=== PATIENT | female | born 1935 | race Caucasian/White ===

== ENCOUNTER 2018-10-10 00:11 | Inpatient (IN) ==
[2018-10-10] MEDS ORDERED: Sod Chloride 0.9% Inj 1,000 ML IV.SIG ONE (00:34)
--- NOTE | 2018-10-10 00:40 | ED ---
HPI General Chief Complaint: Dizziness Stated Complaint: Dizziness Time Seen by Provider: 10/10/18 00:30 Source: patient Limitations: no limitations History of Present Illness HPI Narrative: Dizziness over the last 2 days MD complaint: Reports dizziness Onset (ago): day(s) Timing: sudden onset Description: Reports "room spinning" History of similar episodes: Yes History of trauma: No Severity: moderate Relieving factors: nothing Exacerbating factors: position Associated symptoms: Reports nausea and vomiting Related Data Home Medications Medication Instructions Recorded Confirmed losartan 25 mg PO DAILY 10/10/18 10/10/18 metformin 500 mg PO BID 10/10/18 10/10/18 Allergies Allergy/AdvReac Type Severity Reaction Status Date / Time acetaminophen Allergy Mild Generalized Verified 10/10/18 00:15 Rash codeine Allergy Mild Difficulty Verified 10/10/18 00:15 Breathing hydrocodone Allergy Mild Generalized Verified 10/10/18 00:15 Rash oxycodone Allergy Mild Generalized Verified 10/10/18 00:15 Rash penicillin G Allergy Mild Generalized Verified 10/10/18 00:15 Rash Sulfa (Sulfonamide Allergy Mild Generalized Verified 10/10/18 00:15 Antibiotics) Rash ALL MYCINS Allergy Mild Generalized Uncoded 10/10/18 00:15 Rash Review of Systems ROS: all other systems reviewed are negative Cardiovascular Denies chest pain Neurologic Denies headache(s) and Denies focal weakness PMFSH Medical History Medical History Arthritis (Acute) H/O: hysterectomy (Acute) Hip fracture (Acute) Hypertension (Acute) Osteoporosis (Acute) Surgical History Surgical History Hx of tonsillectomy (Acute) Social History Social History Substance History: No History of Abuse Smoking Status: Never smoker How Often Do You Have a Drink Containing Alcohol: Monthly or less Recent Travel in [place] within the Last 8 Weeks: No Recent Out of Country Travel within the Last 8 Weeks: No Immunization History Tetanus Immunization: Unsure Exam Narrative Exam Narrative: NONTOXIC PERRL, EOMI TM right cerumen with no vesicles, left TM clear NO JVD NON LABORED RESPIRATIONS REGULAR RHYTHM SOFT NON TENDER, no pulsatile mass PELVIS STABLE FROM EXTREMITIES, no pronator drift, equal sales support rep strength NO LOWER EXTREMITY EDEMA, nontender FACIAL SYMMETRY CLEAR NONLABORED SENTENCES Course Reevaluation(s) Reevaluation #1: Patient states she had chest tightness yesterday and she took 2 aspirin, no chest pain current. Updated daughter at bedside 0205 D/W RADHIKA BERMUDEZ TO ADMIT / ASSUME CARE. HD stable with no signs of acute airway compromise Time: 01:56 Initial Documented Vital Signs Temperature 97.3 F L 10/10/18 00:16 Pulse Rate 75 10/10/18 00:16 Respiratory Rate 20 10/10/18 00:16 Blood Pressure 186/85 H 10/10/18 00:16 Pulse Oximetry 97 10/10/18 00:16 Last Documented Vital Signs Temperature 97.3 F L 10/10/18 00:16 Pulse Rate 68 10/10/18 01:10 Respiratory Rate 18 10/10/18 01:10 Blood Pressure 172/85 H 10/10/18 01:10 Pulse Oximetry 97 10/10/18 01:10 Critical Care Time Critical Care Time: Yes Total Critical Care Time: 35 Attestation: Aggregate critical care time was 35 minutes. Time to perform other separately billable procedures was not included in the critical care time. My time did not include minutes spent treating any other patients simultaneously or on activities that did not directly contribute to the patient's treatment. The services I provided to this patient were to treat and/or prevent clinically significant deterioration that could result in: Pain disability I provided critical care services requiring my management, as noted below: Chart data review, documentation time, medication orders and management, vital sign assessments/reviewing monitor data, ordering and reviewing lab tests, ordering and interpreting/reviewing x-rays and diagnostic studies, care of the patient and discussion of the patient with the admitting physicians. Medical Decision Making MDM Narrative Medical Screen Exam Complete: Yes Emergency Medical Condition: Yes Lab Data Result diagrams: 10/10/18 00:49 10/10/18 00:49 Lab Results 10/10/18 10/10/18 Range/Units 00:49 00:49 WBC 9.7 (4.0-11.0) th/mm3 RBC 4.51 (4.00-5.30) mil/mm3 Hgb 13.4 (11.6-15.3) gm/dL Hct 38.9 (35.0-46.0) % MCV 86.3 (80.0-100.0) fL MCH 29.8 (27.0-34.0) pg MCHC 34.5 (32.0-36.0) % RDW 14.2 (11.6-17.2) % Plt Count 210 (150-450) th/mm3 MPV 7.9 (7.0-11.0) fL Neut % (Auto) 59.5 (16.0-70.0) % Lymph % (Auto) 28.3 (9.0-44.0) % [place] % (Auto) 8.0 (0.0-8.0) % Eos % (Auto) 3.9 (0.0-4.0) % Baso % (Auto) 0.3 (0.0-2.0) % Neut # (Auto) 5.7 (1.8-7.7) th/mm3 Lymph # (Auto) 2.7 (1.0-4.8) th/mm3 [place] # (Auto) 0.8 (0.0-0.9) th/mm3 Eos # (Auto) 0.4 (0.0-0.4) th/mm3 Baso # (Auto) 0.0 (0.0-0.2) th/mm3 WBC Differential . Differential Comment Auto diff final Sodium 142 (136-145) meq/L Potassium 3.9 (3.5-5.1) meq/L Chloride 108 H (98-107) meq/L Carbon Dioxide 28.5 (21.0-32.0) meq/L Anion Gap 6 (5-15) meq/L BUN 15 (7-18) mg/dL Creatinine 0.86 (0.50-1.00) mg/dL Estimated GFR 63 L (>89) mL/min Random Glucose 125 H (74-106) mg/dL Calcium 8.6 (8.5-10.1) mg/dL Troponin I 0.19 H (0.02-0.05) ng/mL Imaging Data Radiologist's impression: Chest X-Ray 10/10/18 00:34 CONCLUSION: No acute cardiopulmonary process. Head CT 10/10/18 00:34 CONCLUSION: 1. No acute abnormality. 2. Mild atrophy. . ECG Data Attestation: I personally reviewed and interpreted this ECG as follows: Discharge Plan Discharge Disposition Patient Disposition: ED Admit(ED Internal Use Only) Discharge Condition Condition: Serious Discharge Order Discharge Orders: ED Use Only Admit Order (Routine); Ordered 10/10/18 Ordered By: Tai Barillas Discharge Details Diagnosis: Acute non-ST elevation myocardial infarction (NSTEMI) Physicians Team ED Provider: Tai Barillas Primary Care Provider: Daxa Faulkner Attending Provider: Gini Gaitan Discharge Interventions Interventions: Vital Signs Last Done: 10/10/18 01:10 Status ED Status: Admitted Patient
--- NOTE | 2018-10-10 00:59 | XR ---
EXAM DATE: 10/10/2018 12:48 AM EST AGE/SEX: 82 years / Female INDICATIONS: Dizziness. CLINICAL DATA: This is the patient's initial encounter. Patient reports that signs and symptoms have been present for 1 day and indicates a pain score of 0/10. MEDICAL/SURGICAL HISTORY: None. None. COMPARISON: No prior exams available for comparison. FINDINGS: A single AP view of the chest demonstrates the lungs to be symmetrically aerated without evidence of mass, infiltrate or effusion. The cardiomediastinal contours are unremarkable. Osseous structures a re intact. CONCLUSION: No acute cardiopulmonary process. Electronically signed by: Dale Hollis MD Board Certified Radiologist 10/10/2018 12:57 AM EST
[2018-10-10 01:09] LABS: Baso % (Auto) 0.3 % (0.0-2.0); Eos # (Auto) 0.4 th/mm3 (0.0-0.4); Eos % (Auto) 3.9 % (0.0-4.0); Hematocrit 38.9 % (35.0-46.0); Hemoglobin 13.4 gm/dL (11.6-15.3); Lymph # (Auto) 2.7 th/mm3 (1.0-4.8); Lymph % (Auto) 28.3 % (9.0-44.0); Mean Corpuscular HGB Conc 34.5 % (32.0-36.0); Mean Corpuscular Hemoglobin 29.8 pg (27.0-34.0); Mean Corpuscular Volume 86.3 fL (80.0-100.0); Mean Platelet Volume 7.9 fL (7.0-11.0); Mono # (Auto) 0.8 th/mm3 (0.0-0.9); Neut # (Auto) 5.7 th/mm3 (1.8-7.7); Neut % (Auto) 59.5 % (16.0-70.0); Platelet Count 210 th/mm3 (150-450); Red Blood Count 4.51 mil/mm3 (4.00-5.30); Red Cell Distribution Width 14.2 % (11.6-17.2); White Blood Count 9.7 th/mm3 (4.0-11.0)
[2018-10-10 01:37] LABS: Calcium 8.6 mg/dL (8.5-10.1); Carbon Dioxide 28.5 meq/L (21.0-32.0); Potassium 3.9 meq/L (3.5-5.1)
[2018-10-10 01:41] LABS: Troponin I 0.19 ng/mL (0.02-0.05)
--- NOTE | 2018-10-10 01:44 | CT ---
EXAM DATE: 10/10/2018 1:39 AM EST AGE/SEX: 82 years / Female INDICATIONS: Dizziness. CLINICAL DATA: This is the patient's initial encounter. Patient reports that signs and symptoms have been present for 1 day and indicates a pain score of 0/10. MEDICAL/SURGICAL HISTORY: Hypertension. Hysterectomy. Tonsillectomy. RADIATION DOSE: 30.13 CTDI (mGy) COMPARISON: No prior exams available for comparison. TECHNIQUE: CT of the head without contrast. Using automated exposure control and adjustment of the mA and/or kV according to patient size, radiation dose was kept as low as reasonably achievable to ob tain optimal diagnostic quality images. DICOM format image data is available electronically for revi ew and comparison. FINDINGS: Cerebrum: The ventricles are normal for age. There is mild widening of the sulci. No evidence of mid line shift, mass lesion, hemorrhage or acute infarction. No extraaxial fluid collections are seen. Posterior Fossa: The cerebellum and brainstem are intact. The 4th ventricle is midline. The cerebe llopontine angle is unremarkable. Extracranial: The visualized portion of the orbits is intact. Skull: The calvaria is intact. No evidence of skull fracture. CONCLUSION: 1. No acute abnormality. 2. Mild atrophy. . Electronically signed by: Dale Hollis MD Board Certified Radiologist 10/10/2018 1:43 AM EST
[2018-10-10] MEDS ORDERED: Heparin 10,000 UNITS/10 ML Vial (for IV use) IV.PUSH STA (01:58)
[2018-10-10] MEDS ORDERED: Heparin Drip 25,000 UNIT/250 ML BAG IV.CONT PRN (02:06)
[2018-10-10] MEDS ORDERED: Bisacodyl 10 MG Supp RECTAL PRN (02:09)
[2018-10-10] MEDS ORDERED: Dextrose 50% in Water 50 ML Vial IV.PUSH PRN (02:22)
[2018-10-10 02:31] LABS: Activated Partial Thrombo Time 28.7 sec (23.4-31.7); Prothrombin Time 10.3 sec (9.8-11.6)
[2018-10-10] MEDS ORDERED: LORazepam 0.5 MG Tablet PO PRN (02:31)
[2018-10-10 02:32] LABS: Amorphous Sediment,Urine Rare /hpf; Bacteria,Urine Few /hpf; Bilirubin,Urine Negative (Negative); Clarity,Urine Hazy (Clear); Color,Urine Yellow (Yellw/Straw); Glucose,Urine (UA) Negative (Negative); Leukocyte Esterase,Urine Large (Negative); Mucus,Urine Few /lpf (Occasional); Nitrite,Urine Negative (Negative); Squamous Epithelial Cell,Urine 2 /hpf (0-5)
[2018-10-10] MEDS: Sod Chloride 0.9% Inj 1,000 ML IV.CONT SCH ×2 (02:32→14:09)
--- NOTE | 2018-10-10 02:39 | P.HPIM ---
History of Present Illness Primary Care Physician: Daxa Faulkner MD History of Present Illness: This is an 82-year-old female with no significant PMH who presented to the ER with complaints of dizziness x1 day. States she was seen at ER earlier, had her ears cleaned and was d/c'd home, however symptoms progressively worse. Denies h/o similar symptoms in the past. No nausea, vomiting, headache or blurred vision. No recent URI or nasal congestion. Does note transient episode of "chest tightness" yesterday lasting few seconds, took 2 baby ASA and symptoms resolved, did not seek medical attention at that time. On arrival, BP 186/85, HR 75, O2 sat 97% on RA, Afebrile. CBC unremarkable. Chemistry essentially unremarkable except for GFR 63. Troponin 0.19. EKG with no acute ischemia. CXR with no acute findings. CT Head negative. S/p Meclizine in ER w / no improvement. Currently on Heparin gtt. Chest pain free. - Diagnosis (1) NSTEMI (non-ST elevated myocardial infarction) (2) Vertigo (3) DM (diabetes mellitus) Inpatient Certification: I certify that the inpatient services were ordered in accordance with Medicare regulations governing the order. This includes certification that hospital inpatient services are reasonable and necessary and in the case of services not specified as inpatient-only under 42 CFR 419.22(n), that they are appropriately provided as inpatient services in accordance to with the 2-midnight benchmark under 43 CFR 412.3(e) Estimated Total Length of Stay (Days): 2 Plans for Post Hospital Care: Not yet determined Review of Systems PAST FAMILY HISTORY: Reviewed. No h/o DM or CAD All other systems reviewed negative except as stated in HPI [facility] - History History Provided By: Patient - Medical History Medical History: Medical History (Last Reviewed 10/10/18 @ 00:39 by Tai Barillas DO) Arthritis H/O: hysterectomy Hip fracture Hypertension Osteoporosis - Surgical History Surgical History: Surgical History (Last Updated 10/10/18 @ 00:27 by Chetan Costello Jr, RN) Hx of tonsillectomy - Tobacco History Smoking Status: Never smoker - Alcohol History How Often Do You Have a Drink Containing Alcohol: Monthly or less - Substance Use History Substance History: No History of Abuse - Travel History Recent Travel in the [facility] Within the Last 8 Weeks: No Recent Travel Out of the Country Within the Last 8 Weeks: No - Immunization History Tetanus Immunization: Unsure Medications and Allergies Active Medications: Active Medications Al Hydroxide/Mg Hydroxide (Milk Of Magnesia Liq) 30 ml PO Q12H PRN PRN Reason: Mild Constipation Bisacodyl (Dulcolax Supp) 10 mg RECTAL DAILY PRN PRN Reason: SEVERE CONSITIPATION Dextrose (D50w Vial) 50 ml IV.PUSH UNSCH PRN PRN Reason: PER HYPOGLYCEMIA PROTOCOL Glucagon (Glucagon Inj) 1 mg OTHER PRN PRN PRN Reason: for Hypoglycemia Protocol Heparin Sodium/Dextrose (Heparin/D5w 25,000 U/250 Ml) 25,000 unit in 250 mls @ 0 mls/hr IV.CONT TITRATE PRN; Protocol PRN Reason: Per Protocol Sodium Chloride (Ns Inj) 1,000 mls @ 100 mls/hr IV.CONT .Q10H JULIA Insulin Aspart (Novolog Insulin Correctional Sugar Inj) 0 unit SQ ACHS JULIA; Protocol Lactulose (Lactulose Liq) 30 ml PO DAILY PRN PRN Reason: SEVERE CONSITIPATION Meclizine HCl (Antivert) 25 mg PO Q8H PRN PRN Reason: VERTIGO Nitroglycerin (Nitro-Bid 2% Oint) 0.5 inch TOPICAL Q6HR PRN PRN Reason: CHEST PAIN Ondansetron HCl (Zofran Inj) 4 mg IV.PUSH Q6H PRN PRN Reason: NAUSEA OR VOMITING Senna/Docusate Sodium (Jadyn-Colace) 1 tab PO BID JULIA Sennosides (Senokot) 17.2 mg PO Q12H PRN PRN Reason: Moderate Constipation Sodium Chloride (Ns Flush) 2 ml IV.FLUSH PRN PRN PRN Reason: FLUSH AFTER USING IV ACCESS Sodium Chloride (Ns Flush) 2 ml IV.FLUSH BID JULIA Sodium Chloride (Ns Flush) 2 ml IV.FLUSH PRN PRN PRN Reason: FLUSH AFTER USING IV ACCESS Allergies Allergy/AdvReac Type Severity Reaction Status Date / Time acetaminophen Allergy Mild Generalized Verified 10/10/18 00:15 Rash codeine Allergy Mild Difficulty Verified 10/10/18 00:15 Breathing hydrocodone Allergy Mild Generalized Verified 10/10/18 00:15 Rash oxycodone Allergy Mild Generalized Verified 10/10/18 00:15 Rash penicillin G Allergy Mild Generalized Verified 10/10/18 00:15 Rash Sulfa (Sulfonamide Allergy Mild Generalized Verified 10/10/18 00:15 Antibiotics) Rash ALL MYCINS Allergy Mild Generalized Uncoded 10/10/18 00:15 Rash Home Medications Medication Instructions Recorded Confirmed Type losartan 25 mg PO DAILY 10/10/18 10/10/18 History metformin 500 mg PO BID 10/10/18 10/10/18 History Exam Vital signs: Vital Signs 10/10/18 00:16 10/10/18 00:31 10/10/18 01:10 Temperature 97.3 F L Pulse Rate 75 78 68 Respiratory Rate 20 18 18 Blood Pressure 186/85 H 181/125 H 172/85 H Pulse Oximetry 97 97 97 Intake & Output 10/09/18 10/09/18 10/10/18 06:59 18:59 06:59 Intake Total 1000 / 1000 Balance 1000 / 1000 Weight 54.431 kg Intake: IV 1000 / 1000 NS Inj 1,000 ML @ Wide Open IV. 1000 / 1000 SIG BOLUS ONE Rx#:[id number] Narrative: PE: GENERAL: Pleasant elderly white female in no acute distress. SKIN: Focused skin assessment warm and dry. HEENT: PERRLA, EOMI. No scleral icterus or conjunctival pallor. No lid lag or facial droop. CARDIOVASCULAR: Regular rate and rhythm. No obvious murmurs to auscultation. No chest tenderness to palpation. RESPIRATORY: No obvious rhonchi or wheezing. Clear to auscultation. Breath sounds equal bilaterally. GASTROINTESTINAL: Abdomen soft, non-tender, nondistended. BS normal. MUSCULOSKELETAL: Extremities without clubbing, cyanosis, or edema. No obvious deformities. NEUROLOGICAL: Awake, alert and oriented x4. No focal neurologic deficits. Moving both upper and lower extremities spontaneously. PSYCHIATRIC: Appropriate mood and affect. Insight and judgment normal. Results - Labs CBC & Chem 7: 10/10/18 00:49 10/10/18 00:49 Labs: Short CBC 10/10/18 Range/Units 00:49 WBC 9.7 (4.0-11.0) th/mm3 Hgb 13.4 (11.6-15.3) gm/dL Hct 38.9 (35.0-46.0) % Plt Count 210 (150-450) th/mm3 BMP 10/10/18 00:49 Sodium 142 Potassium 3.9 Chloride 108 H Carbon Dioxide 28.5 BUN 15 Creatinine 0.86 Calcium 8.6 Cardiac Enzymes 10/10/18 Range/Units 00:49 Troponin I 0.19 H (0.02-0.05) ng/mL - Imaging Impressions Chest X-Ray 10/10/18 00:34 CONCLUSION: No acute cardiopulmonary process. Head CT 10/10/18 00:34 CONCLUSION: 1. No acute abnormality. 2. Mild atrophy. . Caprini VTE Risk Assessment Caprini VTE Risk Assessment: No/Low Risk (score <= 1) Caprini Risk Assessment Model: Point Value = 1 Point Value = 2 Point Value = 3 Point Value = 5 Age 41-60 Minor surgery BMI > 25 kg/m2 Swollen legs Varicose veins or History of unexplained or recurrent spontaneous Oral contraceptives or hormone replacement Sepsis (< 1 month) Serious lung disease, including pneumonia (< 1 month) Abnormal pulmonary function Acute myocardial infarction Congestive heart failure (< 1 month) History of inflammatory bowel disease Medical patient at bed rest Age 61-74 Arthroscopic surgery Major open surgery (> 45 min) Laparoscopic surgery (> 45 min) Malignancy Confined to bed (> 72 hours) Immobilizing plaster cast Central venous access Age >= 75 History of VTE Family history of VTE Factor V Leiden Prothrombin [id number] Lupus anticoagulant Anticardiolipin antibodies Elevated serum homocysteine Heparin-induced thrombocytopenia Other congenital or acquired thrombophilia Stroke (< 1 month) Elective arthroplasty Hip, pelvis, or leg fracture Acute spinal cord injury (< 1 month) Prophylaxis Regimen: Total Risk Factor Score Risk Level Prophylaxis Regimen 0-1 Low Early ambulation 2 Moderate Order ONE of the following: *Sequential Compression Device (SCD) *Heparin 5000 units SQ BID 3-4 Higher Order ONE of the following medications: *Heparin 5000 units SQ TID *Enoxaparin/Lovenox 40 mg SQ daily (WT < 150 kg, CrCl > 30 mL/min) *Enoxaparin/Lovenox 30 mg SQ daily (WT < 150 kg, CrCl > 10-29 mL/min) *Enoxaparin/Lovenox 30 mg SQ BID (WT < 150 kg, CrCl > 30 mL/min) AND/OR *Sequential Compression Device (SCD) 5 or more Highest Order ONE of the following medications: *Heparin 5000 units SQ TID (Preferred with Epidurals) *Enoxaparin/Lovenox 40 mg SQ daily (WT < 150 kg, CrCl > 30 mL/min) *Enoxaparin/Lovenox 30 mg SQ daily (WT < 150 kg, CrCl > 10-29 mL/min) *Enoxaparin/Lovenox 30 mg SQ BID (WT < 150 kg, CrCl > 30 mL/min) AND *Sequential Compression Device (SCD) Assessment and Plan - Assessment (1) NSTEMI (non-ST elevated myocardial infarction) Code(s): I21.4 - Non-ST elevation (NSTEMI) myocardial infarction Status: Acute (2) Vertigo Code(s): R42 - Dizziness and giddiness Status: Acute (3) DM (diabetes mellitus) Code(s): E11.9 - Type 2 diabetes mellitus without complications Status: Acute - Plan A/P: 1. NSTEMI: transient episode of chest tightness yesterday associated w/ dizziness, Trop 0.19, EKG w/ no acute ischemia, currently on Heparin gtt. Admit to [facility], Telemetry, check serial cardiac enzymes for trend, start ASA, Statin, Metoprolol. Consult Cardiology for further eval/intervention. NTG/ Morphine prn. 2. Vertigo: c/o dizziness x1 day, CT Head w/ no acute findings, s/p Meclizine with no improvement, states symptoms worse. Ativan prn, PT for eval/tx. 3. DM: Sliding scale w/ Accu-Cheks. Hold Metformin for now. 4. DVT Prophylaxis: Heparin gtt 5. Social work for d/c planning as needed. 6. Case discussed w/ ER physician at length, labs/records/imaging reviewed by me.
[2018-10-10] MEDS: Insulin NovoLOG Aspart Correctional Sugar Inj SQ SCH ×4 (09:32→21:19)
[2018-10-10] MEDS: Senna/Docusate Sodium 8.6/50 MG Tablet PO SCH ×2 (09:34→21:19)
[2018-10-10] MEDS: Metoprolol Tartrate 25 MG Tablet PO SCH ×2 (09:34→21:19)
[2018-10-10 10:54] LABS: Albumin 2.9 g/dL (3.4-5.0); Anion Gap 5 meq/L (5-15); Aspartate Aminotransferase 13 U/L (15-37); Blood Urea Nitrogen 11 mg/dL (7-18); Calcium 7.9 mg/dL (8.5-10.1); Carbon Dioxide 25.8 meq/L (21.0-32.0); Chloride 114 meq/L (98-107); Glomerular Filtration Rate 70 mL/min (>89); Glucose,Random 93 mg/dL (74-106); Sodium 145 meq/L (136-145)
[2018-10-10 10:59] LABS: Alanine Aminotransferase 17 U/L (10-53); Alkaline Phosphatase 60 U/L (45-117); Total Protein 6.2 g/dL (6.4-8.2); Troponin I 0.17 ng/mL (0.02-0.05)
--- NOTE | 2018-10-10 11:39 | P.PNIM ---
Subjective Interval history: No further chest pain overnight, denies any shortness of breath. Mild headache. No nausea or vomiting. Physical Exam Vital signs: Last Vital Signs Temp 97.7 F 10/10/18 08:00 Pulse 59 L 10/10/18 10:00 Resp 16 10/10/18 08:00 BP 138/73 10/10/18 08:00 Pulse Ox 97 10/10/18 08:00 Intake & Output 10/08/18 10/09/18 10/10/18 10/11/18 06:59 06:59 06:59 06:59 Intake Total 1000 / 1000 Output Total 300 / 300 Balance 700 / 700 Weight 54.3 kg Narrative: PE: GENERAL: Pleasant elderly white female in no acute distress. CARDIOVASCULAR: Regular rate and rhythm. No obvious murmurs to auscultation. No chest tenderness to palpation. RESPIRATORY: No obvious rhonchi or wheezing. Clear to auscultation. Breath sounds equal bilaterally. GASTROINTESTINAL: Abdomen soft, non-tender, nondistended. BS normal. MUSCULOSKELETAL: Extremities without clubbing, cyanosis, or edema. No obvious deformities. NEUROLOGICAL: Awake, alert and oriented x4. No focal neurologic deficits. Moving both upper and lower extremities spontaneously. Results Labs CBC & Chem 7: 10/10/18 00:49 10/10/18 10:07 Imaging Imaging: Impressions Chest X-Ray 10/10/18 00:34 CONCLUSION: No acute cardiopulmonary process. Head CT 10/10/18 00:34 CONCLUSION: 1. No acute abnormality. 2. Mild atrophy. . Assessment and Plan (1) NSTEMI (non-ST elevated myocardial infarction): Code(s): I21.4 - Non-ST elevation (NSTEMI) myocardial infarction Status: Acute (2) Vertigo: Code(s): R42 - Dizziness and giddiness Status: Acute (3) DM (diabetes mellitus): Code(s): E11.9 - Type 2 diabetes mellitus without complications Status: Acute Plan This is an 82-year-old female with no significant PMH who presented to the ER with complaints of dizziness, seen at ER earlier, had her ears cleaned and was d/c'd home, started having chest pain, troponin 0 0.19. EKG negative for ischemia. Chest x-ray unremarkable. CT head negative. NSTEMI: telemetry, cardiology input pending, on aspirin, statin ,metoprolol. Per RN, Dr. Gomez was already in, stopped heparin and started Imdur. Nitroglycerin and morphine as needed. Troponin peaked at 0.19. Check lipid panel and hemoglobin A1c. Vertigo: c/o dizziness x1 day, CT Head w/ no acute findings, s/p Meclizine with no improvement, states symptoms worse. Ativan prn, PT for eval/tx. DM: Sliding scale w/ Accu-Cheks. Hold Metformin for now. DVT Prophylaxis: Lovenox Possible discharge tomorrow after cleared by cardiology if no further workup needed. Progress Note: Quality VTE Deep Vein Thrombosis/Pulmonary Embolism Present on Admission: No _ (1) DM (diabetes mellitus) Qualifiers: Chronic kidney disease stage: Diabetes mellitus complication detail: Diabetes mellitus complication status: Diabetes mellitus correction insulin use : Diabetes mellitus macular edema: Diabetes mellitus type: Diabetic retinopathy severity: Laterality: Proliferative retinopathy type:
--- NOTE | 2018-10-10 11:52 | ECG ---
Date Performed: 10/10/2018 Time Performed: 00:36:59 PTAGE: 82 years EKG: Sinus rhythm WITH SINUS ARRHYTHMIA POSSIBLE RIGHT VENTRICULAR CONDUCTION DELAY BORDERLINE ECG Since the PREVIOUS TRACING , no significant change noted PREVIOUS TRACIN12/16/2013 18.44 DOCTOR: Bar Buchanan Interpretating Date/Time 10/10/2018 11:51:19
--- NOTE | 2018-10-10 11:52 | ECG ---
Date Performed: 10/10/2018 Time Performed: 06:42:14 PTAGE: 82 years EKG: Sinus rhythm . Normal ECG Since the PREVIOUS TRACING , no significant change noted PREVIOUS TRACIN10/10/2018 00.36 DOCTOR: Bar Buchanan Interpretating Date/Time 10/10/2018 11:51:11
--- NOTE | 2018-10-10 14:40 | MB ---
cc: Jeramie Sarmiento MD DATE: 10/10/2018 REASON FOR CONSULTATION: Abnormal troponin levels. HISTORY OF PRESENT ILLNESS: The patient is an 82-year-old white female with a history of borderline diabetes, hypertension, and hyperlipidemia, who was in her usual state of health up until 3 days ago when she began experiencing vertigo. Three days ago, she had 15 minutes of vertigo. The following day and most of the following evening, she had the same symptoms. Because her vertigo became more severe and unrelenting yesterday, she finally came to the emergency department. Troponin levels were checked and found to be slightly abnormal. She adamantly and repeatedly denies any chest pains. She also denies pleurisy, fevers, ear pain, shortness of breath, pedal edema, paroxysmal nocturnal dyspnea, palpitations. PAST MEDICAL HISTORY: 1. Diabetes. 2. Hypertension. 3. Hyperlipidemia. PAST SURGICAL HISTORY: 1. Appendectomy. 2. Hysterectomy. 3. Right total knee arthroplasty. 4. Open reduction and internal fixation of a right femoral neck fracture. CARDIAC MEDICATIONS AT HOME: Losartan 25 mg daily. ALLERGIES: CODEINE, LORTAB, OXYCONTIN, PENICILLIN, SULFA, PERCOCET. FAMILY HISTORY: Noncontributory. SOCIAL HISTORY: The patient denies any history of alcohol or tobacco abuse. REVIEW OF SYSTEMS: As in history of present illness, otherwise negative or noncontributory. She also denies headache, abdominal pain, melena, dyspepsia, bright red blood per rectum, fevers. PHYSICAL EXAMINATION: VITAL SIGNS: Her blood pressure 138/73 with a pulse of 59, respirations 16. GENERAL: She is a well-developed, thin white female, in no acute distress. NECK: Jugular venous pressure is normal. Carotid pulses are 2+ bilaterally and without bruits. CHEST: Clear lungs loera. CARDIAC: She has a bradycardic, regular rhythm with a grade 2/6 systolic ejection murmur heard at the base of the heart. The S2 heart sound is normal. No gallop is audible. ABDOMEN: She has a soft, nontender abdomen. Bowel sounds are present. There is no definite hepatosplenomegaly. EXTREMITIES: No clubbing, cyanosis or edema. LABORATORY DATA: EKG from 10/10/2018 at 12:36 a.m. shows sinus rhythm, normal EKG. Chest x-ray shows no acute disease. LABORATORY DATA: Normal CBC. Troponin 0.19. Normal basic metabolic profile except for glucose 125. IMPRESSION: Minimally elevated troponin levels in this 82-year-old white female with a history of borderline diabetes, hypertension, hyperlipidemia. At this point, there is no other evidence for acute coronary syndrome. She adamantly and repeatedly denies any recent chest pains. EKG is basically normal. There is no evidence for congestive heart failure. She does have risk factors for coronary disease. RECOMMENDATIONS: 1. The heparin drip and nitro paste can be stopped. 2. Consider an oral nitrate. 3. Check a 2-D echo to assess her left ventricular and valvular function. I suspect she does have mild aortic stenosis. 4. We will follow up as needed for any major abnormalities seen on echocardiography. She can be discharged home from a cardiac standpoint tomorrow. MD TRISH Suazo/courtney , 12:13 PM , 12:21 PM ÁNGELA
[2018-10-11] MEDS: Sod Chloride 0.9% Inj 1,000 ML IV.CONT SCH (00:56)
[2018-10-11] MEDS ORDERED: Isosorbide Mononitrate 30 MG ER 24HR Tablet (Imdur) PO SCH (07:00)
[2018-10-11 07:33] LABS: Baso % (Auto) 0.6 % (0.0-2.0); Eos # (Auto) 0.3 th/mm3 (0.0-0.4); Eos % (Auto) 5.1 % (0.0-4.0); Hematocrit 34.8 % (35.0-46.0); Hemoglobin 11.6 gm/dL (11.6-15.3); Lymph # (Auto) 1.7 th/mm3 (1.0-4.8); Lymph % (Auto) 28.5 % (9.0-44.0); Mean Corpuscular HGB Conc 33.3 % (32.0-36.0); Mean Corpuscular Hemoglobin 29.5 pg (27.0-34.0); Mean Corpuscular Volume 88.5 fL (80.0-100.0); Mono # (Auto) 0.5 th/mm3 (0.0-0.9); Mono % (Auto) 8.1 % (0.0-8.0); Neut # (Auto) 3.5 th/mm3 (1.8-7.7); Neut % (Auto) 57.7 % (16.0-70.0); Platelet Count 161 th/mm3 (150-450); Red Blood Count 3.93 mil/mm3 (4.00-5.30); Red Cell Distribution Width 14.3 % (11.6-17.2); White Blood Count 6.1 th/mm3 (4.0-11.0)
[2018-10-11 08:05] LABS: Chol/HDL Ratio 3.75 Ratio; HDL Cholesterol 45.6 mg/dL (40.0-60.0)
--- NOTE | 2018-10-11 08:46 | P.PNCA ---
Subjective Interval history: Feeling much better. Vertigo improved. Complains of headache. No CP, dyspnea , palpitations. Medications and Allergies Active Medications: Active Medications Al Hydroxide/Mg Hydroxide (Milk Of Magnesia Liq) 30 ml PO Q12H PRN PRN Reason: Mild Constipation Aspirin (Ecotrin) 81 mg PO DAILY [facility] Bisacodyl (Dulcolax Supp) 10 mg RECTAL DAILY PRN PRN Reason: SEVERE CONSITIPATION Dextrose (D50w Vial) 50 ml IV.PUSH UNSCH PRN PRN Reason: PER HYPOGLYCEMIA PROTOCOL Glucagon (Glucagon Inj) 1 mg OTHER PRN PRN PRN Reason: for Hypoglycemia Protocol Sodium Chloride (Ns Inj) 1,000 mls @ 100 mls/hr IV.CONT .Q10H [facility] Last Admin: 10/11/18 00:56 Dose: 100 mls/hr Insulin Aspart (Novolog Insulin Correctional Sugar Inj) 0 unit SQ ACHS [facility]; Protocol Last Admin: 10/10/18 21:19 Dose: Not Given Isosorbide Mononitrate (Imdur) 30 mg PO DAILY@0700 [facility] Last Admin: 10/11/18 06:43 Dose: 30 mg Lactulose (Lactulose Liq) 30 ml PO DAILY PRN PRN Reason: SEVERE CONSITIPATION Lorazepam (Ativan) 0.5 mg PO Q8H PRN PRN Reason: VERTIGO Metoprolol Tartrate (Lopressor) 25 mg PO BID [facility] Last Admin: 10/10/18 21:19 Dose: 25 mg Ondansetron HCl (Zofran Inj) 4 mg IV.PUSH Q6H PRN PRN Reason: NAUSEA OR VOMITING Pravastatin Sodium (Pravachol) 40 mg PO DAILY [facility] Last Admin: 10/10/18 10:21 Dose: Not Given Senna/Docusate Sodium (Jadyn-Colace) 1 tab PO BID [facility] Last Admin: 10/10/18 21:19 Dose: Not Given Sennosides (Senokot) 17.2 mg PO Q12H PRN PRN Reason: Moderate Constipation Sodium Chloride (Ns Flush) 2 ml IV.FLUSH PRN PRN PRN Reason: FLUSH AFTER USING IV ACCESS Sodium Chloride (Ns Flush) 2 ml IV.FLUSH BID [facility] Last Admin: 10/10/18 21:19 Dose: 2 ml Sodium Chloride (Ns Flush) 2 ml IV.FLUSH PRN PRN PRN Reason: FLUSH AFTER USING IV ACCESS Allergies Allergy/AdvReac Type Severity Reaction Status Date / Time acetaminophen Allergy Mild Generalized Verified 10/10/18 00:15 Rash codeine Allergy Mild Difficulty Verified 10/10/18 00:15 Breathing hydrocodone Allergy Mild Generalized Verified 10/10/18 00:15 Rash oxycodone Allergy Mild Generalized Verified 10/10/18 00:15 Rash penicillin G Allergy Mild Generalized Verified 10/10/18 00:15 Rash Sulfa (Sulfonamide Allergy Mild Generalized Verified 10/10/18 00:15 Antibiotics) Rash ALL MYCINS Allergy Mild Generalized Uncoded 10/10/18 00:15 Rash Home Medications Medication Instructions Recorded Confirmed Type losartan 25 mg PO DAILY 10/10/18 10/10/18 History metformin 500 mg PO BID 10/10/18 10/10/18 History Physical Exam Vital signs: Vital Signs 10/10/18 09:00 10/10/18 10:00 10/10/18 11:00 Temperature Pulse Rate 68 59 L 59 L Respiratory Rate Blood Pressure Pulse Oximetry 10/10/18 12:00 10/10/18 13:00 10/10/18 14:00 Temperature 97.8 F Pulse Rate 60 60 66 Respiratory Rate 16 Blood Pressure 150/82 H Pulse Oximetry 96 10/10/18 15:00 10/10/18 16:00 10/10/18 17:00 Temperature 97.6 F Pulse Rate 66 92 H 58 L Respiratory Rate 16 Blood Pressure 130/73 Pulse Oximetry 96 10/10/18 18:00 10/10/18 19:00 10/10/18 20:00 Temperature 98.0 F Pulse Rate 66 67 61 Respiratory Rate 18 Blood Pressure 141/74 H Pulse Oximetry 95 10/10/18 21:00 10/10/18 22:00 10/10/18 23:00 Temperature Pulse Rate 74 60 57 L Respiratory Rate Blood Pressure Pulse Oximetry 10/11/18 00:00 10/11/18 01:00 10/11/18 02:00 Temperature Pulse Rate 52 L 59 L 68 Respiratory Rate 16 Blood Pressure 160/80 H Pulse Oximetry 95 10/11/18 03:00 10/11/18 04:00 10/11/18 05:00 Temperature 97.4 F L Pulse Rate 48 L 55 L 69 Respiratory Rate 16 Blood Pressure 150/72 H Pulse Oximetry 96 10/11/18 06:00 Temperature Pulse Rate 72 Respiratory Rate Blood Pressure Pulse Oximetry Intake & Output 10/10/18 10/11/18 10/11/18 18:59 06:59 18:59 Intake Total 1590 / 1590 1240 / 1240 Output Total 725 / 725 1200 / 1200 Balance 865 / 865 40 / 40 Weight 55 kg Intake: IV 1050 / 1050 1000 / 1000 Heparin/D5W 25,000 U/250 mL 25, 50 / 50 000 unit In 250 ml @ Per Protocol IV.CONT TITRATE PRN Rx #:[id number] NS Inj 1,000 ML @ 100 mls/hr IV 1000 / 1000 1000 / 1000 .CONT .Q10H [facility] Rx#:[id number] Oral 540 / 540 240 / 240 Output: Urine 725 / 725 1200 / 1200 Other: # Urine Diapers 3 Date of Last Bowel Movement 10/09/18 10/11/18 # Bowel Movements 1 - Constitutional no acute distress - Routine Neck Exam Present: normal carotid upstroke. Absent: JVD - Routine Respiratory Exam Present: CTA bilaterally - Routine Cardiovascular Exam Present: RRR, S1, S2, murmur. Absent: gallop Comments: II/ FAISAL diffusely, more prominent at base with normal S2. - Routine Abdominal Exam Present: soft, normoactive bowel sounds. Absent: tenderness, organomegaly - Routine Extremities Exam Absent: cyanosis, clubbing, edema Results 10/11/18 05:19 10/10/18 10:07 Cardiac Enzymes 10/10/18 10/10/18 10/10/18 Range/Units 00:49 10:07 12:29 AST 13 L (15-37) U/L Troponin I 0.19 H 0.17 H 0.16 H (0.02-0.05) ng/mL Coagulation 10/10/18 10/10/18 Range/Units 01:59 10:07 PT 10.3 (9.8-11.6) sec APTT 28.7 61.5 H D (23.4-31.7) sec Lipids 10/11/18 Range/Units 05:19 Triglycerides 96 (42-150) mg/dL Cholesterol 171 (120-200) mg/dL HDL Cholesterol 45.6 (40.0-60.0) mg/dL Cholesterol/HDL Ratio 3.75 Ratio CBC 12/16/18 12/17/18 Range/Units 00:49 05:19 WBC 9.7 6.1 (4.0-11.0) th/mm3 RBC 4.51 3.93 L (4.00-5.30) mil/mm3 Hgb 13.4 11.6 (11.6-15.3) gm/dL Hct 38.9 34.8 L (35.0-46.0) % Plt Count 210 161 (150-450) th/mm3 Neut # (Auto) 5.7 3.5 (1.8-7.7) th/mm3 Lymph # (Auto) 2.7 1.7 (1.0-4.8) th/mm3 Foard # (Auto) 0.8 0.5 (0.0-0.9) th/mm3 Eos # (Auto) 0.4 0.3 (0.0-0.4) th/mm3 Baso # (Auto) 0.0 0.0 (0.0-0.2) th/mm3 Comprehensive Metabolic Panel 10/10/18 10/10/18 Range/Units 00:49 10:07 Sodium 142 145 (136-145) meq/L Potassium 3.9 4.0 (3.5-5.1) meq/L Chloride 108 H 114 H (98-107) meq/L Carbon Dioxide 28.5 25.8 (21.0-32.0) meq/L BUN 15 11 (7-18) mg/dL Creatinine 0.86 0.79 (0.50-1.00) mg/dL Calcium 8.6 7.9 L (8.5-10.1) mg/dL AST 13 L (15-37) U/L ALT 17 (10-53) U/L Alkaline Phosphatase 60 (45-117) U/L Total Protein 6.2 L (6.4-8.2) g/dL Albumin 2.9 L (3.4-5.0) g/dL Intake and Output 10/10/18 10/11/18 10/11/18 22:59 06:59 14:59 Intake Total 540 / 540 1240 / 1240 Output Total 725 / 725 1200 / 1200 Balance -185 / -185 40 / 40 Intake: IV 1000 / 1000 NS Inj 1,000 ML @ 100 mls/hr IV 1000 / 1000 .CONT .Q10H [facility] Rx#:[id number] Oral 540 / 540 240 / 240 Output: Urine 725 / 725 1200 / 1200 Other: # Urine Diapers 3 Date of Last Bowel Movement 10/09/18 10/11/18 # Bowel Movements 1 Weight 55 kg - Imaging and Cardiology Imaging: Impressions Chest X-Ray 10/10/18 00:34 CONCLUSION: No acute cardiopulmonary process. Head CT 10/10/18 00:34 CONCLUSION: 1. No acute abnormality. 2. Mild atrophy. . Assessment and Plan - Assessment (1) Elevated troponin Code(s): R74.8 - Abnormal levels of other serum enzymes Status: Acute Plan: No other evidence for ACS. Patient once again adamantly denies any recent CP' s. Patient declines taking Imdur due to headache. Echo pending. Recommend add amlodipine 5 mg qd for better BP control, continue metoprolol, aspirin. OK to discharge from cardiac standpoint. (2) Vertigo Code(s): R42 - Dizziness and giddiness Status: Acute Plan: Improved vertigo since admission. Possibly viral etiology. Intolerant of meclizine. (3) Hypertension Code(s): I10 - Essential (primary) hypertension Status: Chronic Plan: Suboptimal BP's. Recommend add amlodipine 5 mg qd. Outpatient monitoring and medication adjustment by her PCP. (4) Hyperlipidemia Code(s): E78.5 - Hyperlipidemia, unspecified Status: Chronic Plan: Suboptimal lipid profile. Agree with statin therapy. USP f/u and therapy by her PCP. (3) Hypertension Qualifiers: Hypertension type: essential hypertension Qualified Code(s): I10 - Essential (primary) hypertension (4) Hyperlipidemia Qualifiers: Hyperlipidemia type: mixed hyperlipidemia Qualified Code(s): E78.2 - Mixed hyperlipidemia
[2018-10-11] MEDS: Metoprolol Tartrate 25 MG Tablet PO SCH (08:51)
[2018-10-11] MEDS: Insulin NovoLOG Aspart Correctional Sugar Inj SQ SCH ×2 (08:52→12:04)
[2018-10-11] MEDS: Senna/Docusate Sodium 8.6/50 MG Tablet PO SCH (08:52)
[2018-10-11] MEDS ORDERED: amLODIPine 5 MG Tablet PO SCH (09:00)
--- NOTE | 2018-10-11 10:34 | P.DCO ---
- Diagnosis (1) Acute non-ST elevation myocardial infarction (NSTEMI) Status: Acute (2) Vertigo Status: Acute (3) DM (diabetes mellitus) Status: Acute - Physical Therapy Order: Evaluate and treat - Home Health Nursing Order: Nursing assessment with vital signs - Formal W[employer] Rental Clerk Order: To provide: Long range planning - Case Management Consult Case Management Consult-Home Health: Yes - Certification I have seen patient Sierra Quiñonez on 10/11/18. My clinical findings support the need for the requested home health care services because: Need for psychosocial assistance I certify that my clinical findings support that this patient is homebound because: Need for psychosocial assistance
--- NOTE | 2018-10-11 10:37 | P.PNIM ---
Subjective Interval history: Patient says that she has a dull throbbing whole head headache after taking Imdur this morning. Denies any chest pain or shortness of breath. Reports continued feeling of dizziness, however has improved somewhat. He says that headache is getting better. Physical Exam Vital signs: Vital Signs 10/10/18 11:00 10/10/18 12:00 10/10/18 13:00 Temperature 97.8 F Pulse Rate 59 L 60 60 Respiratory Rate 16 Blood Pressure 150/82 H Pulse Oximetry 96 10/10/18 14:00 10/10/18 15:00 10/10/18 16:00 Temperature 97.6 F Pulse Rate 66 66 92 H Respiratory Rate 16 Blood Pressure 130/73 Pulse Oximetry 96 10/10/18 17:00 10/10/18 18:00 10/10/18 19:00 Temperature Pulse Rate 58 L 66 67 Respiratory Rate Blood Pressure Pulse Oximetry 10/10/18 20:00 10/10/18 21:00 10/10/18 22:00 Temperature 98.0 F Pulse Rate 61 74 60 Respiratory Rate 18 Blood Pressure 141/74 H Pulse Oximetry 95 10/10/18 23:00 10/11/18 00:00 10/11/18 01:00 Temperature Pulse Rate 57 L 52 L 59 L Respiratory Rate 16 Blood Pressure 160/80 H Pulse Oximetry 95 10/11/18 02:00 10/11/18 03:00 10/11/18 04:00 Temperature 97.4 F L Pulse Rate 68 48 L 55 L Respiratory Rate 16 Blood Pressure 150/72 H Pulse Oximetry 96 10/11/18 05:00 10/11/18 06:00 10/11/18 07:00 Temperature Pulse Rate 69 72 55 L Respiratory Rate Blood Pressure Pulse Oximetry 10/11/18 08:00 Temperature 97.6 F Pulse Rate 64 Respiratory Rate 18 Blood Pressure 132/68 Pulse Oximetry 97 Intake & Output 10/10/18 10/11/18 10/11/18 18:59 06:59 18:59 Intake Total 1590 / 1590 1240 / 1240 0 / 0 Output Total 725 / 725 1200 / 1200 Balance 865 / 865 40 / 40 0 / 0 Weight 55 kg Intake: IV 1050 / 1050 1000 / 1000 0 / 0 Heparin/D5W 25,000 U/250 mL 25, 50 / 50 000 unit In 250 ml @ Per Protocol IV.CONT TITRATE PRN Rx #:[id number] NS Inj 1,000 ML @ 100 mls/hr IV 1000 / 1000 1000 / 1000 0 / 0 .CONT .Q10H [facility] Rx#:[id number] Oral 540 / 540 240 / 240 Output: Urine 725 / 725 1200 / 1200 Other: # Urine Diapers 3 Date of Last Bowel Movement 10/09/18 10/11/18 10/11/18 # Bowel Movements 1 Narrative: GENERAL: Sitting up in bed. Appears comfortable. SKIN: Warm and dry. HEAD: Normocephalic. EYES: No scleral icterus. No injection or drainage. NECK: Supple, trachea midline. No JVD. CARDIOVASCULAR: Regular rate and rhythm without murmurs, gallops, or rubs. RESPIRATORY: Breath sounds equal bilaterally. No accessory muscle use. GASTROINTESTINAL: Abdomen soft, non-tender, nondistended. MUSCULOSKELETAL: No cyanosis, or edema. BACK: Nontender without obvious deformity. No CVA tenderness. Results - Labs CBC & Chem 7: 10/11/18 05:19 10/10/18 10:07 Laboratory Results - last 24 hr 10/10/18 10/10/18 10/10/18 10:07 10:07 11:44 WBC RBC Hgb Hct MCV MCH MCHC RDW Plt Count MPV Neut % (Auto) Lymph % (Auto) Crane % (Auto) Eos % (Auto) Baso % (Auto) Neut # (Auto) Lymph # (Auto) Crane # (Auto) Eos # (Auto) Baso # (Auto) WBC Differential Differential Comment APTT 61.5 H D Sodium 145 Potassium 4.0 Chloride 114 H Carbon Dioxide 25.8 Anion Gap 5 BUN 11 Creatinine 0.79 Estimated GFR 70 L POC Glucose 102 Random Glucose 93 Calcium 7.9 L Total Bilirubin 0.4 AST 13 L ALT 17 Alkaline Phosphatase 60 Troponin I 0.17 H Total Protein 6.2 L Albumin 2.9 L Triglycerides Cholesterol LDL Cholesterol, Calc HDL Cholesterol Cholesterol/HDL Ratio 10/10/18 10/10/18 10/10/18 12:29 17:05 21:13 WBC RBC Hgb Hct MCV MCH MCHC RDW Plt Count MPV Neut % (Auto) Lymph % (Auto) Crane % (Auto) Eos % (Auto) Baso % (Auto) Neut # (Auto) Lymph # (Auto) Crane # (Auto) Eos # (Auto) Baso # (Auto) WBC Differential Differential Comment APTT Sodium Potassium Chloride Carbon Dioxide Anion Gap BUN Creatinine Estimated GFR POC Glucose 107 143 H Random Glucose Calcium Total Bilirubin AST ALT Alkaline Phosphatase Troponin I 0.16 H Total Protein Albumin Triglycerides Cholesterol LDL Cholesterol, Calc HDL Cholesterol Cholesterol/HDL Ratio 10/11/18 10/11/18 10/11/18 05:19 05:19 08:47 WBC 6.1 RBC 3.93 L Hgb 11.6 Hct 34.8 L MCV 88.5 MCH 29.5 MCHC 33.3 RDW 14.3 Plt Count 161 MPV 8.0 Neut % (Auto) 57.7 Lymph % (Auto) 28.5 Crane % (Auto) 8.1 H Eos % (Auto) 5.1 H Baso % (Auto) 0.6 Neut # (Auto) 3.5 Lymph # (Auto) 1.7 Crane # (Auto) 0.5 Eos # (Auto) 0.3 Baso # (Auto) 0.0 WBC Differential . Differential Comment Auto diff final APTT Sodium Potassium Chloride Carbon Dioxide Anion Gap BUN Creatinine Estimated GFR POC Glucose 172 H Random Glucose Calcium Total Bilirubin AST ALT Alkaline Phosphatase Troponin I Total Protein Albumin Triglycerides 96 Cholesterol 171 LDL Cholesterol, Calc 106 H HDL Cholesterol 45.6 Cholesterol/HDL Ratio 3.75 Assessment and Plan - Assessment (1) NSTEMI (non-ST elevated myocardial infarction) Code(s): I21.4 - Non-ST elevation (NSTEMI) myocardial infarction Status: Acute (2) Vertigo Code(s): R42 - Dizziness and giddiness Status: Acute (3) DM (diabetes mellitus) Code(s): E11.9 - Type 2 diabetes mellitus without complications Status: Acute - Plan This is an 82-year-old female with no significant PMH who presented to the ER with complaints of dizziness, seen at ER earlier, had her ears cleaned and was d/c'd home, started having chest pain, troponin 0 0.19. EKG negative for ischemia. Chest x-ray unremarkable. CT head negative. //NSTEMI: telemetry, cardiology input pending, on aspirin, statin ,metoprolol. Per RN, Dr. Gomez was already in, stopped heparin and started Imdur. Nitroglycerin and morphine as needed. Troponin peaked at 0.19. Check lipid panel and hemoglobin A1c. -LDL 106, HDL 45. -10/11. Patient reported throbbing headache after taking Imdur, says she will not take this medication again. Discontinue Imdur. Continue current medications and monitor. Appreciate cardiology assistance. Pending echocardiogram. //Vertigo: c/o dizziness x1 day, CT Head w/ no acute findings, s/p Meclizine with no improvement, states symptoms worse. Ativan prn, PT for eval/tx. = 10/11. PT eval ordered. //DM: Sliding scale w/ Accu-Cheks. Hold Metformin for now. //DVT Prophylaxis: Lovenox Progress Note: Quality VTE Deep Vein Thrombosis/Pulmonary Embolism Present on Admission: No Discharge Planning: Follow up PT evaluation as well as echocardiogram. Patient will be discharged home with home health
--- NOTE | 2018-10-11 12:23 | ECG ---
Date Performed: 10/10/2018 Time Performed: 14:21:58 PTAGE: 82 years EKG: Sinus bradycardia Lateral T wave changes are nonspecific Since the previous tracing, no sig nificant change noted Borderline ECG PREVIOUS TRACING : 10/10/2018 06.42 DOCTOR: Neo Love Interpretating Date/Time 10/11/2018 12:20:25
[2018-10-11] MEDS ORDERED: Acetaminophen 325 MG Tablet PO PRN (14:13)
[2018-10-11 15:44] LABS: Hemoglobin A1c 6.1 % (4.3-6.0)
--- NOTE | 2018-10-11 16:01 | P.DCO ---
- Diagnosis (1) Vertigo Status: Acute - Physical Therapy Order: Evaluate and treat - Home Health Nursing Order: Signs/symptoms of disease process - Case Management Consult Case Management Consult-Home Health: Yes - Certification I have seen patient Sierra Quiñonez on 10/11/18. My clinical findings support the need for the requested home health care services because: High risk of falls I certify that my clinical findings support that this patient is homebound because: Unsteady gait/balance
--- NOTE | 2018-10-11 16:08 | P.DS ---
Date of admission: 10/10/18 02:06 Primary care physician: Daxa Faulkner MD Brief History from admission: This is an 82-year-old female with no significant PMH who presented to the ER with complaints of dizziness x1 day. States she was seen at ER earlier, had her ears cleaned and was d/c'd home, however symptoms progressively worse. Denies h/o similar symptoms in the past. No nausea, vomiting, headache or blurred vision. No recent URI or nasal congestion. Does note transient episode of "chest tightness" yesterday lasting few seconds, took 2 baby ASA and symptoms resolved, did not seek medical attention at that time. On arrival, BP 186/85, HR 75, O2 sat 97% on RA, Afebrile. CBC unremarkable. Chemistry essentially unremarkable except for GFR 63. Troponin 0.19. EKG with no acute ischemia. CXR with no acute findings. CT Head negative. S/p Meclizine in ER w / no improvement. Currently on Heparin gtt. Chest pain free. DS: Diagnosis - Discharge Diagnosis (1) Vertigo Status: Acute (2) DM (diabetes mellitus) Status: Acute (3) Acute non-ST elevation myocardial infarction (NSTEMI) Status: Acute DS: Summary Hospital Course: This is an 82-year-old female with no significant PMH who presented to the ER with complaints of dizziness, seen at ER earlier, had her ears cleaned and was d/c'd home, started having chest pain, troponin 0 0.19. EKG negative for ischemia. Chest x-ray unremarkable. CT head negative. //NSTEMI: telemetry, cardiology input pending, on aspirin, statin ,metoprolol. Per RN, Dr. Gomez was already in, stopped heparin and started Imdur. Nitroglycerin and morphine as needed. Troponin peaked at 0.19. Check lipid panel and hemoglobin A1c. -LDL 106, HDL 45. -10/11. Patient reported throbbing headache after taking Imdur, says she will not take this medication again. Discontinue Imdur. Continue current medications and monitor. Appreciate cardiology assistance. Pending echocardiogram. //Vertigo: c/o dizziness x1 day, CT Head w/ no acute findings, s/p Meclizine with no improvement, states symptoms worse. Ativan prn, PT for eval/tx. = 10/11. PT eval ordered. //DM: Sliding scale w/ Accu-Cheks. Hold Metformin for now. //DVT Prophylaxis: Lovenox Progress Note: Quality VTE Deep Vein Thrombosis/Pulmonary Embolism Present on Admission: No Discharge Planning: Follow up PT evaluation as well as echocardiogram. Patient will be discharged home with home health - Time Spent with Patient Total time spent providing and/or coordinating discharge services: Greater than 30 minutes - Quality: VTE Deep Vein Thrombosis/Pulmonary Embolism Present on Admission: No Exam Vital signs: Vital Signs 10/10/18 17:00 10/10/18 18:00 10/10/18 19:00 Temperature Pulse Rate 58 L 66 67 Respiratory Rate Blood Pressure Pulse Oximetry 10/10/18 20:00 10/10/18 21:00 10/10/18 22:00 Temperature 98.0 F Pulse Rate 61 74 60 Respiratory Rate 18 Blood Pressure 141/74 H Pulse Oximetry 95 10/10/18 23:00 10/11/18 00:00 10/11/18 01:00 Temperature Pulse Rate 57 L 52 L 59 L Respiratory Rate 16 Blood Pressure 160/80 H Pulse Oximetry 95 10/11/18 02:00 10/11/18 03:00 10/11/18 04:00 Temperature 97.4 F L Pulse Rate 68 48 L 55 L Respiratory Rate 16 Blood Pressure 150/72 H Pulse Oximetry 96 10/11/18 05:00 10/11/18 06:00 10/11/18 07:00 Temperature Pulse Rate 69 72 55 L Respiratory Rate Blood Pressure Pulse Oximetry 10/11/18 08:00 10/11/18 09:00 10/11/18 10:00 Temperature 97.6 F Pulse Rate 60 68 74 Respiratory Rate 18 Blood Pressure 132/68 Pulse Oximetry 97 10/11/18 11:00 10/11/18 12:00 10/11/18 13:00 Temperature 97.8 F Pulse Rate 64 56 L 60 Respiratory Rate 18 Blood Pressure 131/77 Pulse Oximetry 96 Intake & Output 10/10/18 10/11/18 10/11/18 18:59 06:59 18:59 Intake Total 1590 / 1590 1240 / 1240 0 / 0 Output Total 725 / 725 1200 / 1200 Balance 865 / 865 40 / 40 0 / 0 Weight 55 kg Intake: IV 1050 / 1050 1000 / 1000 0 / 0 Heparin/D5W 25,000 U/250 mL 25, 50 / 50 000 unit In 250 ml @ Per Protocol IV.CONT TITRATE PRN Rx #:[id number] NS Inj 1,000 ML @ 100 mls/hr IV 1000 / 1000 1000 / 1000 0 / 0 .CONT .Q10H JULIA Rx#:[id number] Oral 540 / 540 240 / 240 Output: Urine 725 / 725 1200 / 1200 Other: # Urine Diapers 3 Date of Last Bowel Movement 10/09/18 10/11/18 10/11/18 # Bowel Movements 1 Results Labs on day of discharge: Labs from last 24 hours 10/11/18 10/11/18 10/11/18 11:47 08:47 05:19 WBC RBC Hgb Hct MCV MCH MCHC RDW Plt Count MPV Neut % (Auto) Lymph % (Auto) Frontier % (Auto) Eos % (Auto) Baso % (Auto) Neut # (Auto) Lymph # (Auto) Frontier # (Auto) Eos # (Auto) Baso # (Auto) WBC Differential Differential Comment POC Glucose 107 172 H Triglycerides 96 Cholesterol 171 LDL Cholesterol, Calc 106 H HDL Cholesterol 45.6 Cholesterol/HDL Ratio 3.75 10/11/18 10/10/18 10/10/18 05:19 21:13 17:05 WBC 6.1 RBC 3.93 L Hgb 11.6 Hct 34.8 L MCV 88.5 MCH 29.5 MCHC 33.3 RDW 14.3 Plt Count 161 MPV 8.0 Neut % (Auto) 57.7 Lymph % (Auto) 28.5 Frontier % (Auto) 8.1 H Eos % (Auto) 5.1 H Baso % (Auto) 0.6 Neut # (Auto) 3.5 Lymph # (Auto) 1.7 Frontier # (Auto) 0.5 Eos # (Auto) 0.3 Baso # (Auto) 0.0 WBC Differential . Differential Comment Auto diff final POC Glucose 143 H 107 Triglycerides Cholesterol LDL Cholesterol, Calc HDL Cholesterol Cholesterol/HDL Ratio - Impressions ITS Impressions Chest X-Ray 10/10/18 00:34 CONCLUSION: No acute cardiopulmonary process. Head CT 10/10/18 00:34 CONCLUSION: 1. No acute abnormality. 2. Mild atrophy. . Discharge Plan - Discharge Disposition Patient Disposition: 06 Disch W/Home Health Service - Discharge Condition Condition: Good - Discharge Order Discharge Orders: Discharge Order (Routine); Ordered 10/11/18 Ordered By: Donavon Duvall Cardiology Clear for Discharge (Routine); Ordered 10/11/18 Ordered By: Jeramie Sarmiento - Discharge Details Anticipated Discharge Date: 10/11/18 Discharge Comment: Discharge when cleared by physical therapy. Please call me after physical therapy sees patient - Physicians Team Primary Care Provider: Daxa Faulkner Attending Provider: Donavon Duvall Other Providers: Neo Love MD ; Saw Spring
--- NOTE | 2018-10-11 17:47 | ECHRPT ---
Indication: cardiomyopathy CONCLUSIONS Normal left ventricular size. Wall thickness is normal. The left ventricular systolic function is normal with an estimated ejection fraction in the range of 55-60%. [id number] mitral valve regurgitation. Aortic valve sclerosis is present. Diffuse calcification of the aortic valve. Trace aortic valve regurgitation. [id number]-[id number] aortic valve regurgitation. Aortic valve area is 0.84 cm. Aortic valve mean gradient is 32 mmHg. The estimated pulmonary arterial pressure is 51 mmHg. BP: / HR: Rhythm: MEASUREMENTS (Male / Female) Normal Values Technical Quality: 2D ECHO LV Diastolic Diameter PLAX 4.0 cm 4.2 - 5.9 / 3.9 - 5.3 cm LV Systolic Diameter PLAX 3.0 cm IVS Diastolic Thickness 1.0 cm 0.6 - 1.0 / 0.6 - 0.9 cm LVPW Diastolic Thickness 1.1 cm 0.6 - 1.0 / 0.6 - 0.9 cm LV Relative Wall Thickness 0.6 RV Internal Dim ED PLAX 2.5 cm LVOT Diameter 1.8 cm Aortic Root Diameter 2.2 cm LA Systolic Diameter LX 4.1 cm 3.0 - 4.0 / 2.7 - 3.8 cm M-MODE Aortic Root Diameter MM 3.1 cm LA Systolic Diameter MM 5.3 cm LA Ao Ratio MM 1.7 AV Cusp Separation MM 1.3 cm DOPPLER AV Peak Velocity 353.8 cm/s AV Peak Gradient 50.1 mmHg AV Mean Gradient 29.7 mmHg AV Velocity Time Integral 85.0 cm LVOT Peak Velocity 119.0 cm/s LVOT Peak Gradient 5.7 mmHg LVOT Velocity Time Integral 27.1 cm AV Area Cont Eq vti 0.8 cm AV Area Cont Eq pk 0.9 cm Mitral E Point Velocity 70.1 cm/s Mitral A Point Velocity 105.0 cm/s Mitral E to A Ratio 0.7 LV E' Lateral Velocity 3.4 cm/s Mitral E to LV E' Lateral Ratio 20.6 LV E' Septal Velocity 4.4 cm/s Mitral E to LV E' Septal Ratio 16.0 TR Peak Velocity 320.0 cm/s TR Peak Gradient 41.0 mmHg Right Atrial Pressure 10.0 mmHg Pulmonary Artery Systolic Pressu 51.0 mmHg Right Ventricular Systolic Press 51.0 mmHg PV Peak Velocity 133.0 cm/s PV Peak Gradient 7.1 mmHg FINDINGS LEFT VENTRICLE Normal left ventricular size. Wall thickness is normal. The left ventricular systolic function is normal with an estimated ejection fraction in the range of 55-60%. RIGHT VENTRICLE Normal right ventricular size and systolic function. LEFT ATRIUM The left atrial size is normal. RIGHT ATRIUM The right atrial size is normal. ATRIAL SEPTUM Normal atrial septal thickness without atrial level shunting by limited color doppler interrogation. AORTA The aortic root and proximal ascending aorta are normal in size on limited imaging. MITRAL VALVE Zfwj-aq-zvixddks mitral valve regurgitation. AORTIC VALVE Trileaflet aortic valve. Aortic valve sclerosis is present. Diffuse calcification of the aortic valve. Trace aortic valve regurgitation. Xpslzvqg-[id number]-[id number] aortic valve regurgitation. Aortic valve area is 0.84 cm. Aortic valve mean gradient is 32 mmHg. TRICUSPID VALVE The estimated pulmonary arterial pressure is 51 mmHg. PULMONARY VALVE No pulmonary valve regurgitation or stenosis. VESSELS The inferior vena cava is normal in size. PERICARDIUM No pericardial effusion. Ian Hdez MD, FACC (Electronically Signed) Final Date:11 October 2018 17:46
== END 2018-10-11 18:00 | disposition home health service (06) ==
LOC: NEPC 00:11 → NEDA 02:06 → HCIS 04:01
PROVIDERS: ADMIT Internal Medicine; ATTEND Internal Medicine
DX: Z88.5 Allergy status to narcotic agent; Z79.4 Long term (current) use of insulin; Z96.651 Presence of right artificial knee joint; E11.9 Type 2 diabetes mellitus without complications; M81.0 Age-related osteoporosis without current pathological fracture; I21.4 Non-ST elevation (NSTEMI) myocardial infarction; Z88.2 Allergy status to sulfonamides; Z88.0 Allergy status to penicillin; E78.5 Hyperlipidemia, unspecified; Z79.899 Other long term (current) drug therapy; I10 Essential (primary) hypertension; M19.90 Unspecified osteoarthritis, unspecified site